=== PATIENT | female | born 1985 | race Caucasian/White ===

== ENCOUNTER 2020-10-13 06:00 | Inpatient (IN) ==
[2020-10-13] MEDS ORDERED: OXYTOCIN/0.9 % SODIUM CHLORIDE 30 UNITS/500 ML BAG IV ONE (13:28)
[2020-10-13] MEDS ORDERED: LIDOCAINE HCL 50 ML VIAL PERI PRN (13:28)
[2020-10-13] MEDS ORDERED: BUTORPHANOL TARTRATE 2 MG/ML VIAL IV PRN ×2 (13:28)
[2020-10-13] MEDS ORDERED: RINGER'S SOLUTION,LACTATED 1,000 ML IV ONE (13:28)
[2020-10-13] MEDS ORDERED: ONDANSETRON 4 MG TAB.RAPDIS PO PRN (13:28)
[2020-10-13] MEDS: RINGER'S SOLUTION,LACTATED 1,000 ML IV PRN ×2 (14:28→23:53)
[2020-10-13] MEDS ORDERED: PENICILLIN G POTASSIUM 5 MILLIONUNT in DEXTROSE 5 % IN WATER 100 ML IV ONE ×2 (14:30)
[2020-10-13] MEDS ORDERED: PENICILLIN G POTASSIUM 2.5 MILLIONUNT in DEXTROSE 5 % IN WATER 100 ML IV SCH ×2 (16:30)
--- NOTE | 2020-10-13 17:35 | HP ---
Chief Complaint - Chief Complaint Date of Service: 10/13/20 Time of Service: 17:30 Chief Complaint: Medical induction History of Present Illness: 35 year old at 40w 0d who presents to L&D for a medical IOL due to post due date. She reports contractions on pitocin. Denies vb or lof. Fetus is active. 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 Highest level of school completed/degree received: high school graduate Service: No Tobacco: Smoking Status: Former smoker how long ago did patient quit smoking: quit with +UPT 03/13/17 Alcohol: alcohol intake: current alcohol intake frequency: holiday/special occasion Substance Use: substance use type: does not use Dietary Habits: caffeine: Yes Review Of Systems (GEN) - Review of Systems Generalized/Overall Review: Present: No Symptoms Reported Misc: All systems neg except as marked Allergies/Adverse Reactions: Allergies Allergy/AdvReac Type Severity Reaction Status Date / Time No Known Allergies Allergy Verified 10/13/20 13:27 Home Medications: HOME MEDICATIONS prenat.vits,nicole,[id number] 1 tab PO DAILY 03/17/20 [Last Taken Unknown] Exam - Exam Vital Signs: Vital Signs - Last Taken Temp 36.5 C 10/13/20 13:40 Pulse 103 H 10/13/20 13:40 Resp 16 10/13/20 13:40 BP 131/81 10/13/20 13:40 Pulse Ox 98 10/13/20 13:40 Constitutional: Present: Alert, Oriented x3, Cooperative ENT Exam: Present: normal ENT inspection, hearing grossly normal Eye Exam: bilateral eye: normal inspection Neck: Present: normal inspection Breasts: Present: Exam deferred Respiratory: Present: lungs clear, normal breath sounds, no respiratory distress Cardiovascular/Chest: Present: regular rate, rhythm Abdomen: Present: soft, nontender, nondistended /Rectal: Present: Other - 3/50/-3 AROM for clear fluid Extremity: Present: non-tender, no calf tenderness Skin Exam: Present: normal color, warm/dry, no cyanosis Neurologic: Present: alert, normal mood/affect, oriented x 3 Appearance: Present: appropriate appearance, appropriate insight, neat, no memory impairment Eye contact: Present: cooperative, good eye contact, normal speech Thoughts: Present: normal thought pattern Diagnostic Studies: Laboratory Results Blood Type A Positive 10/13/20 13:35 Antibody Screen Negative 10/13/20 13:35 Assessment/Plan - Narrative Narrative: 35 year old at 40w 0d 1. Medical IOL due to AMA: on pitocin, AROM done for augmentation 2. GBS positive: PCN prophylaxis - Assessment/Plan (1) 40 weeks gestation of Problem: Acute (2) Anemia Problem: Acute Qualifiers: Anemia type: iron deficiency (3) AMA (advanced maternal age) multigravida 35+ Problem: Acute Qualifiers: Trimester: third trimester Qualified Code(s): O09.523 - Supervision of elderly multigravida, third trimester
--- NOTE | 2020-10-13 18:21 | ANES ---
Anesthesia Pre Procedure Eval Vitals/Labs: Last Vital Signs Temp 36.5 C 10/13/20 13:40 Pulse 103 H 10/13/20 13:40 Resp 16 10/13/20 13:40 BP 131/81 10/13/20 13:40 Pulse Ox 98 10/13/20 13:40 HOME MEDICATIONS prenat.vits,nicole,[id number] 1 tab PO DAILY 03/17/20 [Last Taken Unknown] Allergies/Adverse Reactions: Allergies Allergy/AdvReac Type Severity Reaction Status Date / Time No Known Allergies Allergy Verified 10/13/20 13:27 - Planned Procedure Planned Procedure: Labor Epidural Medication List Reviewed:: Yes Allergies Verified: Yes Medical History (Last Reviewed 10/13/20 @ 17:32 by Gisell Weaver MD) Anemia Surgical History (Last Reviewed 10/13/20 @ 17:32 by Gisell Weaver MD) No significant past surgical history Family History (Last Reviewed 10/13/20 @ 17:32 by Gisell Weaver MD) Father Diabetes borderline Grandmother Diabetes paternal - Anesthesia Assessment and Plan ASA Class: PS, II Anesthesia Type Plan: Epidural
[2020-10-13] MEDS ORDERED: NALOXONE HCL 1 MG/1 ML SYRG IV PRN (18:23)
[2020-10-13] MEDS ORDERED: BUPIVACAINE HCL/0.9 % NACL/PF 250 ML EP PRN (18:23)
[2020-10-13] MEDS ORDERED: ONDANSETRON HCL/PF 2 MG/ML VIAL IV PRN (18:23)
--- NOTE | 2020-10-13 18:45 | ANES ---
Anesthesia Procedure Note Procedure Note: ANESTHESIA PROCEDURE NOTE Date of Procedure: 10/13/2020. Time of procedure: 183. Performed by: Adolfo Collado CRNA Retaining Room Cutter: None. Preprocedure diagnosis: Active labor. Post procedure diagnosis: Same. Procedure: Insertion of labor epidural. Indications: The patient is a 35-year-old female in active labor requesting labor epidural for pain management. Findings: See below. Details of the procedure: The patient was placed in a sitting position. DuraPrep as well as Betadine swabs X3 was applied to the patient's back. Patient was then draped in a sterile fashion. Lidocaine 1% was infiltrated to the skin and subcutaneous tissues at the level of the L3-4 interspace. The epidural space was identified using a 18-gauge Tuohy needle with [id number] technique. Epidural catheter was inserted to a depth of 12 centimeters at skin. Negative test dose was elicited using 3 mL of 1.5% preservative-free lidocaine plus epinephrine 1 200,000. The epidural catheter was then taped and secured in place. EBL: Minimal. Fluids: N/A. Specimen: N/A. Post procedure condition: The patient tolerated the procedure well. No complications were noted. Thank you for this consultation. Adolfo Collado CRNA
[2020-10-13] MEDS: PENICILLIN G POTASSIUM 2.5 MILLIONUNT in DEXTROSE 5 % IN WATER 100 ML IV SCH ×4 (18:46→22:31)
--- NOTE | 2020-10-13 18:46 | ANES ---
Post Anesthesia Assessment - Vital Signs Vitals: Last Vital Signs Temp 36.5 C 10/13/20 13:40 Pulse 103 H 10/13/20 13:40 Resp 16 10/13/20 13:40 BP 131/81 10/13/20 13:40 Pulse Ox 98 10/13/20 13:40 Airway Patency: Normal - Mental Status Level Of Consciousness: Awake - N/V Assessment Nausea/Vomiting Presence: None Dehydration:: No
[2020-10-14] MEDS: PENICILLIN G POTASSIUM 2.5 MILLIONUNT in DEXTROSE 5 % IN WATER 100 ML IV SCH ×4 (02:31→06:31)
[2020-10-14] MEDS ORDERED: TERBUTALINE SULFATE 1 MG/ML VIAL ONE (03:06)
[2020-10-14] MEDS ORDERED: TERBUTALINE SULFATE 1 MG/ML VIAL SC ONE (03:06)
--- NOTE | 2020-10-14 04:14 | PN ---
Progess Note - Interim Date: 10/14/20 Time: 04:12 Narrative: 10/14/20 04:12 Called by RN due to bradycardia to the 60s Verbal order given for a one time dose of terbutaline Once I arrived the heart rate was cat 1 cvx 8-9 cm Attempted to reduce the cervix over a few contractions but unable to and thus pushing was discontinued Pitocin currently at 6 milliunits/minute Continue to titrate pitocin up Patient and spouse updated with plan of care
--- NOTE | 2020-10-14 04:30 | PN ---
Progess Note - Interim Date: 10/14/20 Time: 04: Narrative: 10/14/20 04:29 Obtain COVID test given slow progress of labor and sign consent should it be needed. In the meantime, as long as FHT is reassuring continue to titrate pitocin up
[2020-10-14] MEDS ORDERED: diphenhydrAMINE HCL 50 MG/ML VIAL IV ONE (07:30)
--- NOTE | 2020-10-14 11:05 | PN ---
Progess Note - Interim Date: 10/14/20 Time: 11:03 Narrative: 10/14/20 11:03 Late entry for 0900 Amnioinfusion started due to recurrent variable decelerations An initial amnioinfusion bolus of 250 mL was ordered but only 200 mL infused since the patient delivered
--- NOTE | 2020-10-14 11:09 | OR ---
Operative Report - Dictated Report Narrative: Date of delivery: 10/14/2020 Time of delivery: 1047 Gender: female weight: grams APGARS: 8/9 Procedure: Description of the procedure: The patient is a 35 year old at 40w1d who presented to labor and delivery for a medical IOL due to AMA and post due date. She progressed to complete dilation. She delivered a viable female infant in JENNY presentation. The shoulders delivered without difficulty followed by the rest of the infant. Cord clamping was delayed for 60 seconds due to vigorous infant. The cord was clamped and cut. Cord blood was collected. The placenta was delivered by expression, intact, and without difficulty. A second degree perineal laceration along with a vaginal laceration was repaired with 3-0 rapide. Hemostasis was adequate. EBL: 150 mL Complications: none Specimens: cord blood History for MU Definition: * The number of deliveries resulting in a live the patient experienced prior to current hospitalization * The previous delivery of live twins or any live multiple gestation is considered one live event. *If primagravida or nulliparous is documented select zero for the number of previous live births. Live Events: 3
[2020-10-14] MEDS ORDERED: BENZOCAINE/MENTHOL 81 SPRAY CAN TP PRN (11:25)
[2020-10-14] MEDS ORDERED: OXYTOCIN/0.9 % SODIUM CHLORIDE 30 UNITS/500 ML BAG IV ONE (11:25)
[2020-10-14] MEDS ORDERED: HYDROCORTISONE 30 APPL TUBE TP PRN (11:25)
[2020-10-14] MEDS ORDERED: SENNOSIDES 8.6 MG TABLET PO PRN (11:25)
[2020-10-14] MEDS ORDERED: diphenhydrAMINE HCL 25 MG CAPSULE PO PRN (11:25)
[2020-10-14] MEDS ORDERED: BISACODYL 10 MG SUPP.RECT RC PRN (11:25)
[2020-10-14] MEDS ORDERED: GLYCERIN/WITCH HAZEL LEAF 40 APPL BOX TP PRN (11:25)
[2020-10-14] MEDS ORDERED: HYDROcodone/ACETAMINOPHEN 1 EACH TABLET PO PRN ×2 (11:25)
[2020-10-14] MEDS: IBUPROFEN 800 MG TABLET PO PRN ×2 (11:39→20:27)
[2020-10-14] MEDS: DOCUSATE SODIUM 100 MG CAPSULE PO SCH (20:48)
[2020-10-15] MEDS: IBUPROFEN 800 MG TABLET PO PRN ×3 (02:51→21:10)
[2020-10-15] MEDS ORDERED: MEDROXYPROGESTERONE ACET 150 MG/ML SYRG IM ONE (07:35)
--- NOTE | 2020-10-15 07:35 | PN ---
Subjective - Date and Time Seen Date: 10/15/20 Time: 07:34 Subjective Narrative: Patient without complaints Objective Objective Narrative: See vital signs - Review of Systems Generalized/Overall Review: Reports: No Symptoms Reported Misc: All systems neg except as marked - Vitals Vitals: Last Vital Signs Temp 36.3 C 10/15/20 06:50 Pulse 94 10/15/20 06:50 Resp 18 10/15/20 06:50 BP 133/76 10/15/20 06:50 Pulse Ox 97 10/15/20 06:50 - Exam Constitutional: Present: Alert, Oriented x3, Cooperative, No distress ENT Exam: Present: hearing grossly normal Extremity: Present: non-tender, no calf tenderness Skin Exam: Present: normal color, warm/dry, no cyanosis Cauti Physician Documentation - Urinary Catheter Management Urethral (Graham) Urethral Indwelling: No Date of Insertion: 10/13/20 Time of Insertion: 21:00 Date of Removal: 10/14/20 Time of Removal: 10:45 Assessment/Plan Plan Narrative: PPD 1 s/p Doing well Depo-Provera to be administered today Discharge tomorrow - Problems/Diagnosis (1) 40 weeks gestation of Problem: Acute (2) Anemia Problem: Acute Qualifiers: Anemia type: iron deficiency (3) AMA (advanced maternal age) multigravida 35+ Problem: Acute Qualifiers: Trimester: third trimester Qualified Code(s): O09.523 - Supervision of elderly multigravida, third trimester
[2020-10-15] MEDS: DOCUSATE SODIUM 100 MG CAPSULE PO SCH ×2 (08:48→21:10)
[2020-10-15] MEDS ORDERED: PRENATAL VITS96/IRON FUM/FOLIC 1 TAB TABLET PO SCH (09:00)
[2020-10-16 07:23] VITALS: BP 120/77
--- NOTE | 2020-10-16 08:15 | PN ---
Subjective - Date and Time Seen Date: 10/16/20 Time: 08:14 Subjective Narrative: Patient without complaints Objective Objective Narrative: See vital signs - Review of Systems Generalized/Overall Review: Reports: No Symptoms Reported Misc: All systems neg except as marked - Vitals Vitals: Last Vital Signs Temp 36.7 C 10/16/20 07:00 Pulse 102 H 10/16/20 07:00 Resp 18 10/16/20 07:00 BP 120/77 10/16/20 07:00 Pulse Ox 93 10/16/20 07:00 - Exam Constitutional: Present: Alert, Oriented x3, Cooperative, No distress ENT Exam: Present: hearing grossly normal Abdomen: Present: soft, nontender, nondistended Extremity: Present: non-tender, no calf tenderness Skin Exam: Present: normal color, warm/dry, no cyanosis Neurologic: Present: alert, normal mood/affect, oriented x 3 Appearance: Present: appropriate appearance, appropriate insight, neat, no memory impairment Eye contact: Present: cooperative, good eye contact, normal speech Thoughts: Present: normal thought pattern Cauti Physician Documentation - Urinary Catheter Management Urethral (Graham) Urethral Indwelling: No Date of Insertion: 10/13/20 Time of Insertion: 21:00 Date of Removal: 10/14/20 Time of Removal: 10:45 Assessment/Plan Plan Narrative: PPD 2 s/p Doing well Discharge today - Problems/Diagnosis (1) 40 weeks gestation of Problem: Acute (2) Anemia Problem: Acute Qualifiers: Anemia type: iron deficiency (3) AMA (advanced maternal age) multigravida 35+ Problem: Acute Qualifiers: Trimester: third trimester Qualified Code(s): O09.523 - Supervision of elderly multigravida, third trimester
--- NOTE | 2020-10-16 08:17 | DS ---
OB Discharge Summary (1) 40 weeks gestation of Status: Acute (2) Anemia Status: Acute Qualifiers: Anemia type: iron deficiency (3) AMA (advanced maternal age) multigravida 35+ Status: Acute Qualifiers: Trimester: third trimester Qualified Code(s): O09.523 - Supervision of elderly multigravida, third trimester Delivery Date: 10/14/20 Delivery Time: 10:47 :: 4 Para:: 4 Gestational weeks:: 40 Gestational days:: 1 Intrapartum Procedures: Spontaneous Vaginal Delivery, Anesthesia - Epidural Procedures: None /OP Complications: No Complications Discharge Diagnosis: Term -Delivered - Discharge Information Date of Discharge: 10/16/20 Hospital Course: The patient presented for a medical IOL. Delivery and course were uncomplicated. Discharge Location: Home Disposition: Home self-care Activity on Discharge:: Activity as tolerated, Pelvic Rest Discharge Diet: General/regular food Additional Patient Instructions (free text): Flakita your post tubal will be scheduled for December [address] Weaver. The office will notify you of details. Flakita will follow up with Dr. Weaver on Continue to take your vitamins one daily. Rest when your baby rests. Drink plenty of fluids, eat a lot of fruits and vegetables and lean meat. Jean-Paul will follow up with Dr. Harrell on Jean-Paul weight was 8# 7.3 oz. Today's weight was 7# 12.6 oz Her TCB was 7.7 at 43 hours. She has passed her hearing in both ears, Her CHD and her Metabolic screen has been drawn. Her blood type is O positive. Always use safe sleeping practices, always place Jean-Paul on her back to sleep in her own bed, no co-sleeping, no bumper pad, pillows, heavy blankets or stuffed animals in sleeping area. Nurse your baby every 2-3 hours and when showing feeding cues. Thank you for choosing [facility] for your special event, if you have any concerns or questions or concerns please call the [facility] [phone], [facility] [phone] or [facility] [phone]. Complete Home Medications List: Complete Home Medication List: prenat.vits,nicole,[id number] 1 tab PO DAILY 03/17/20 - Plan Discharge to:: Home Comment:: Routine Discharge Instructions Follow up in office in:: Other - 4 weeks - Information Weight (Grams): 3,836 Infant Sex: Female Score 1 min: 8 Score 5 min: 9 Complications: Multiple Variable Decels Other Complications: amnioinfusion, LGA
== END 2020-10-16 12:30 | disposition home or self-care (01) | DRG 807 ==
LOC: OB 06:05 → MS 10-15 14:12
PROVIDERS: ADMIT Obstetrics & Gynecology; ATTEND Obstetrics & Gynecology